=== PATIENT | male | born 1970 | race Caucasian/White ===

== ENCOUNTER 2018-12-06 07:41 | Emergency (ER) | payer BC ==
[2018-12-06 08:18] LABS: #Basophils 0.1 thou/uL (0.0-0.2); #Eosinphils 0.2 thou/uL (0.0-0.7); #Lymphocytes 2.4 thou/uL (1.20-3.40); #Monocytes 0.8 thou/uL (0.11-0.59); #Neutrophils 5.4 thou/uL (1.40-6.50); %Basophils 1.2 % (0.0-1.0); %Eosinophils 2.7 % (0.0-10.0); %Monocytes 9.3 % (0.0-10.0); %Neutrophils 59.9 % (42.0-75.0); Hemoglobin 14.1 g/dL (14.0-18.0); Mean Corpuscular HGB CONC 33.2 g/dL (32.0-36.0); Mean Corpuscular Hemoglobin 31.3 pg (27.0-31.0); Mean Corpuscular Volume 94.3 fL (78.0-98.0); Platelet Count 224 thou/uL (130-400); RBC Distribution Width 12.3 % (11.5-14.5); White Blood Cell (WBC) Count 9.1 thou/uL (4.8-10.8)
--- NOTE | 2018-12-06 08:30 | CT ---
CT of the facial bones: 12/06/2018 COMPARISON: None HISTORY: Right-sided facial injury, trauma, pain TECHNIQUE: Axial CT imaging at 2.5 mm intervals through the facial bones without contrast. Coronal an d sagittal reformatted imaging obtained. FINDINGS: There is soft tissue swelling with skin thickening and stranding of the subcutaneous fat in the right inferior perimandibular region. The frontal sinuses, sphenoid sinuses, ethmoid air cells, and maxillary sinuses appear well aerated. Mastoid air cells appear unremarkable as well. The nasal bones, zygomatic arches, and pterygoid plates are intact. The orbital floor and the medial orbital wall is unremarkable bilaterally. No mandibular fracture. Te mporomandibular joints appear normal. Anterior discectomy and fusion hardware is present at the C5-6 level. Both internal carotid arteries demonstrate a medialized retropharyngeal course. IMPRESSION: Inferior right-sided crissy-mandibular soft tissue swelling. No associated fracture.
[2018-12-06 08:41] LABS: ALT (SGPT) 33 U/L (8-55); AST (SGOT) 14 U/L (5-34); Albumin 4.1 g/dL (3.5-5.0); Alkaline Phosphatase 69 U/L (40-150); Anion Gap 14 mmol/L (10-20); BUN (Urea Nitrogen) 16 mg/dL (8.9-20.6); Bilirubin, Total 0.2 mg/dL (0.2-1.2); Calc. Creatinine Clearance 0 mL/min (70-130); Carbon Dioxide 25 mmol/L (22-29); Chloride 108 mmol/L (98-107); Estimated GFR-MDRD 88; Globulin 2.4 g/dL (2.4-3.5); Glucose 116 mg/dL (70-105); Potassium 4.7 mmol/L (3.5-5.1); Protein, Total 6.5 g/dL (6.0-8.3); Sodium 142 mmol/L (136-145)
[2018-12-06] MEDS ORDERED: Lidocaine 2% 20 ml MDV ONE (08:42)
[2018-12-06] MEDS ORDERED: Sodium Chloride Irrig Solution 250 ML BOT ONE (08:47)
[2018-12-06] MEDS ORDERED: Adacel (T-DAP) 0.5 ML SYRINGE ONE (09:27)
[2018-12-06] MEDS ORDERED: Triple Antibiotic Oint 1 GM Packet ONE (09:40)
[2018-12-06] MEDS ORDERED: HYDROcodone/Acetaminophen 5/325 mg Tablet ONE (09:41)
== END 2018-12-06 09:48 | disposition home or self-care (01) ==
LOC: MADERS 07:41
DX: S01.512A Laceration without foreign body of oral cavity, initial encounter (principal); S11.91XA Laceration without foreign body of unspecified part of neck, initial encounter; M19.90 Unspecified osteoarthritis, unspecified site; K21.9 Gastro-esophageal reflux disease without esophagitis; F32.9 Major depressive disorder, single episode, unspecified; F17.210 Nicotine dependence, cigarettes, uncomplicated; Z23 Encounter for immunization; W22.8XXA Striking against or struck by other objects, initial encounter
CPT/HCPCS: 12002; 70486; 80053; 85025; 90471; 90715; J2001